=== PATIENT | male | born 1990 | race Hispanic/Latino ===

== ENCOUNTER 2017-03-16 01:18 | Emergency (ER) | payer BC, OTHER ==
[2017-03-16] MEDS ORDERED: Bacitracin 500 Units/gm Oint Foilpak UD TOP ONE (02:11)
[2017-03-16] MEDS ORDERED: Lidocaine 1% Inj (20ml) INFIL ONE (02:12)
[2017-03-16] MEDS ORDERED: Lidocaine 1% Inj (20ml) ONE (02:55)
[2017-03-16] MEDS ORDERED: Bacitracin 500 Units/gm Oint Foilpak UD ONE (02:56)
--- NOTE | 2017-03-16 03:32 | C.PDOC ---
History Of Present Illness 26 year old male presents to the ER intoxicated after he slipped and fell on a wet floor at a bar tonight and landed on broken glass, suffering a laceration to the left medial lower arm with abrasions to palm. Patient's last tetanus unknown, denies weakness or change in sensation. Time Seen by Provider: 03/16/17 01:48 Chief Complaint (Nursing): Abnormal Skin Integrity History Per: Patient History/Exam Limitations: no limitations Onset/Duration Of Symptoms: Hrs Current Symptoms Are (Timing): Still Present Location Of Injury: Left: Arm, Hand Quality Of Symptoms: Other (Laceration) Severity: Moderate Recent travel outside of the [place]: No Past Medical History Reviewed: Historical Data, Nursing Documentation, Vital Signs Vital Signs: Last Vital Signs Temp 97.7 F 03/16/17 04:26 Pulse 89 03/16/17 04:26 Resp 18 03/16/17 04:26 BP 100/61 03/16/17 04:26 Pulse Ox 97 03/16/17 04:26 - Medical History PMH: No Chronic Diseases Surgical History: No Surg Hx Family History: States: Unknown Family Hx - Social History Hx Alcohol Use: Yes Hx Substance Use: Yes - Immunization History Hx Tetanus Toxoid Vaccination: Yes Hx Influenza Vaccination: No Hx Pneumococcal Vaccination: No Review Of Systems Skin: Positive for: Other (Laceration) Neurological: Negative for: Weakness, Numbness, Headache Physical Exam - Physical Exam Appears: Non-toxic, No Acute Distress, Other (ETOH on breath) Skin: Normal Color, Warm, Dry Head: Atraumatic, Normacephalic Eye(s): bilateral: Normal Inspection Cardiovascular: Rhythm Irregular, No Murmur Respiratory: Normal Breath Sounds, No Wheezing Gastrointestinal/Abdominal: Soft, No Tenderness Extremity: Normal ROM (x4), No Pedal Edema, Capillary Refill (<2 seconds), No Deformity, Other (4cm laceration to left medial distal forearm with multiple abrasions to palm) Pulses: Left Radial: Normal, Right Radial: Normal Neurological/Psych: Oriented x3, Normal Speech, Normal Cognition, Normal Cranial Nerves, Normal Motor, Normal Sensation ED Course And Treatment O2 Sat by Pulse Oximetry: 98 Laceration - Laceration Repair left forearm Wound Length (In cm): 4 cm Description Of Wound: Linear, Clean Anesthesia: Lidocaine 1% Wound Examination: Irrigated With Saline, No FB With Wound Exploration, No Tendon Injury With Wound Exploration Wound Closure: Suture Suture Technique And Material Used: Running, Interrupted, Nylon Wound Complexity: Simple (#8) Medical Decision Making Medical Decision Making: laceration repaired, tdap booster given. will d/c with girlriend who will accompany patient home. Disposition Counseled Patient/Family Regarding: Diagnosis, Need For Followup - Disposition Disposition: HOME/ ROUTINE Disposition Time: 04:08 Condition: IMPROVED Additional Instructions: Keep laceration clean and dry for next 24 hours, then wash with soap and water, pat dry gently, re-apply antibiotics ointment. Suture removal in 10 days. Return to ER for any signs of infection such as redness. swelling. purulent drainage. Apply bacitracin to abrasions on hand as well. Tylenol or Motrin for pain if needed. Prescriptions: Bacitracin OINT 1 applic TOP BID #1 tube Instructions: Care For Your Stitches (ED), Laceration (ED) Forms: [facility] [employer] (Telugu), General Discharge Instructions - Clinical Impression Clinical Impression: Laceration, Multiple abrasions - Scribe Statement The provider has reviewed the documentation as recorded by the Scribe Michael Ledesma All medical record entries made by the Scribe were at my direction and personally dictated by me. I have reviewed the chart and agree that the record accurately reflects my personal performance of the history, physical exam, medical decision making, and the department course for this patient. I have also personally directed, reviewed, and agree with the discharge instructions and disposition.
[2017-03-16 04:29] VITALS: BP 100/61; PULSE 89; RESP 18; TEMP 97.7
[2017-03-17 06:15] VITALS: O2SAT 98
== END 2017-03-16 04:27 | disposition home or self-care (01) ==
LOC: C.ER 01:18
DX: S51.812A Laceration without foreign body of left forearm, initial encounter (principal); S60.512A Abrasion of left hand, initial encounter; W01.198A Fall on same level from slipping, tripping and stumbling with subsequent striking against other object, initial encounter; Y92.89 Other specified places as the place of occurrence of the external cause